=== PATIENT | female | born 1965 | race Caucasian/White ===

== ENCOUNTER 2020-02-05 | Emergency (ER) | payer SELFPAY ==
[2020-02-05] MEDS ORDERED: ZYRTEC10 MG PO (15:34)
[2020-02-05] MEDS ORDERED: METOPROL TAR25 MG PO (15:34)
[2020-02-05] MEDS ORDERED: CYCLOBENZAPR5 MG PO (16:03)
== END 2020-02-05 16:12 | disposition home or self-care (01) | DRG 538 ==
DX: S76.911A Strain of unspecified muscles, fascia and tendons at thigh level, right thigh, initial encounter (principal); I10 Essential (primary) hypertension; X58.XXXA Exposure to other specified factors, initial encounter